=== PATIENT | male | born 1945 | race Caucasian/White ===

== ENCOUNTER → 2019-06-03 15:06 | Outpatient (CLI) | payer MEDICARE ==
[2019-06-03 15:36] LABS: BASOPHILS 0.8 % (0-2); EOSINOPHILS 12.8 % (0-7); HEMATOCRIT 33.6 % (42.0-54.0); HEMOGLOBIN 10.2 g/dL (13.5-17.5); IMMATURE GRANULOCYTES 0.1 % (0-5); LYMPHOCYTES 27.6 % (15-50); MCH 26.5 pg (26.0-34.0); MCHC 30.4 g/dL (31.0-37.0); MCV 87.3 fL (80.0-100.0); MEAN PLATELET VOLUME 10.1 fL (7.4-10.4); MONOCYTES 8.1 % (2-11); NEUTROPHILS 50.6 % (40-80); PLATELET COUNT 337 10x3/uL (130-400); RBC 3.85 10x6/uL (4.20-6.10); RDW 17.6 % (11.5-14.5); WBC 8.4 10x3/uL (4.8-10.8)
[2019-06-03 15:48] LABS: CREATININE - SERUM 1.1 mg/dL (0.6-1.3); VANCOMYCIN - TROUGH 20.4 ug/mL (10.0-20.0)
== END | disposition home or self-care (01) ==
LOC: D.LABREF 15:06
PROVIDERS: ATTEND Orthopaedic Surgery
DX: M86.9 Osteomyelitis, unspecified (principal)

== ENCOUNTER → 2019-06-10 16:29 | Outpatient (CLI) | payer MEDICARE ==
[2019-06-10 17:26] LABS: EOSINOPHILS 10.5 % (0-7); HEMATOCRIT 36.6 % (42.0-54.0); HEMOGLOBIN 11.4 g/dL (13.5-17.5); IMMATURE GRANULOCYTES 0.2 % (0-5); LYMPHOCYTES 25.9 % (15-50); MCH 27.3 pg (26.0-34.0); MCHC 31.1 g/dL (31.0-37.0); MCV 87.8 fL (80.0-100.0); MEAN PLATELET VOLUME 9.9 fL (7.4-10.4); MONOCYTES 7.8 % (2-11); NEUTROPHILS 54.6 % (40-80); PLATELET COUNT 319 10x3/uL (130-400); RBC 4.17 10x6/uL (4.20-6.10); RDW 17.1 % (11.5-14.5); WBC 9.6 10x3/uL (4.8-10.8)
[2019-06-10 17:56] LABS: CREATININE - SERUM 1.2 mg/dL (0.6-1.3); VANCOMYCIN - TROUGH 16.6 ug/mL (10.0-20.0)
== END | disposition home or self-care (01) ==
LOC: D.LABREF 16:29
PROVIDERS: ATTEND Orthopaedic Surgery
DX: M86.9 Osteomyelitis, unspecified (principal)

== ENCOUNTER → 2019-06-17 16:41 | Outpatient (CLI) | payer MEDICARE ==
[2019-06-17 16:49] LABS: BASOPHILS 1.3 % (0-2); EOSINOPHILS 10.8 % (0-7); HEMOGLOBIN 11.7 g/dL (13.5-17.5); LYMPHOCYTES 24.6 % (15-50); MCH 27.3 pg (26.0-34.0); MCHC 30.8 g/dL (31.0-37.0); MCV 88.8 fL (80.0-100.0); MEAN PLATELET VOLUME 10.7 fL (7.4-10.4); MONOCYTES 8.6 % (2-11); NEUTROPHILS 54.7 % (40-80); PLATELET COUNT 265 10x3/uL (130-400); RBC 4.28 10x6/uL (4.20-6.10); RDW 16.4 % (11.5-14.5)
[2019-06-17 17:05] LABS: CREATININE - SERUM 1.3 mg/dL (0.6-1.3); VANCOMYCIN - TROUGH 18.6 ug/mL (10.0-20.0)
== END | disposition home or self-care (01) ==
LOC: D.LABREF 16:41
PROVIDERS: ATTEND Orthopaedic Surgery
DX: M86.9 Osteomyelitis, unspecified (principal)

== ENCOUNTER → 2019-06-24 21:06 | Outpatient (CLI) | payer MEDICARE ==
[2019-06-24 21:14] LABS: BASOPHILS 0.7 % (0-2); EOSINOPHILS 11.6 % (0-7); HEMATOCRIT 38.7 % (42.0-54.0); HEMOGLOBIN 12.2 g/dL (13.5-17.5); IMMATURE GRANULOCYTES 0.2 % (0-5); LYMPHOCYTES 22.6 % (15-50); MCH 27.6 pg (26.0-34.0); MCHC 31.5 g/dL (31.0-37.0); MCV 87.6 fL (80.0-100.0); MEAN PLATELET VOLUME 10.3 fL (7.4-10.4); MONOCYTES 9.7 % (2-11); NEUTROPHILS 55.2 % (40-80); PLATELET COUNT 240 10x3/uL (130-400); RBC 4.42 10x6/uL (4.20-6.10); WBC 8.7 10x3/uL (4.8-10.8)
[2019-06-24 21:29] LABS: CREATININE - SERUM 1.2 mg/dL (0.6-1.3); VANCOMYCIN - TROUGH 19.2 ug/mL (10.0-20.0)
== END | disposition home or self-care (01) ==
LOC: D.LABREF 21:06
PROVIDERS: ATTEND Orthopaedic Surgery
DX: M86.9 Osteomyelitis, unspecified (principal)

== ENCOUNTER → 2019-07-01 15:36 | Outpatient (CLI) | payer MEDICARE ==
[2019-07-01 15:47] LABS: BASOPHILS 1.1 % (0-2); EOSINOPHILS 10.2 % (0-7); HEMATOCRIT 36.9 % (42.0-54.0); HEMOGLOBIN 11.7 g/dL (13.5-17.5); IMMATURE GRANULOCYTES 0.3 % (0-5); LYMPHOCYTES 28.1 % (15-50); MCHC 31.7 g/dL (31.0-37.0); MCV 88.3 fL (80.0-100.0); MEAN PLATELET VOLUME 10.2 fL (7.4-10.4); MONOCYTES 7.2 % (2-11); NEUTROPHILS 53.1 % (40-80); PLATELET COUNT 241 10x3/uL (130-400); RBC 4.18 10x6/uL (4.20-6.10); RDW 15.6 % (11.5-14.5); WBC 7.9 10x3/uL (4.8-10.8)
[2019-07-01 16:10] LABS: CREATININE - SERUM 1.5 mg/dL (0.6-1.3); VANCOMYCIN - TROUGH 15.3 ug/mL (10.0-20.0)
== END | disposition home or self-care (01) ==
LOC: D.LABREF 15:36
PROVIDERS: ATTEND Orthopaedic Surgery
DX: M86.9 Osteomyelitis, unspecified (principal)

== ENCOUNTER → 2020-07-21 10:17 | Outpatient (CLI) | payer MEDICARE | END | disposition home or self-care (01) | LOC: D.HCCECHO 09:00 | PROVIDERS: ATTEND Internal Medicine Cardiovascular Disease | DX: I25.10 Atherosclerotic heart disease of native coronary artery without angina pectoris (principal) ==